=== PATIENT | female | born 1950 | race Caucasian/White ===

== ENCOUNTER 2016-10-26 06:04 | Inpatient (IN) | payer OTHER ==
[2016-10-20 12:13] VITALS: BMI 25.7
[2016-10-26] MEDS ORDERED: CELECOXIB 200 MG CAPSULE PO ONE (06:28)
[2016-10-26] MEDS ORDERED: CEFAZOLIN 1 GM/D5W 50 ML IVPB ONE (06:28)
[2016-10-26] MEDS ORDERED: GABAPENTIN 300 MG CAPSULE (FP) PO ONE (06:28)
[2016-10-26] MEDS ORDERED: TRANEXAMIC ACID 1000 MG/10 ML VIAL IVPUSH ONE (06:28)
[2016-10-26] MEDS ORDERED: GABAPENTIN 300 MG CAPSULE (FP) ONE (06:37)
[2016-10-26] MEDS ORDERED: CELECOXIB 200 MG CAPSULE ONE (06:37)
[2016-10-26] MEDS ORDERED: ceFAZolin SODIUM 1 GM VIAL ONE ×2 (07:03→07:59)
[2016-10-26] MEDS ORDERED: VANCOMYCIN 1,000 MG VIAL (RESTRICTED TO ID ONLY) ONE (07:04)
[2016-10-26] MEDS ORDERED: MIDAZOLAM HCL 2 MG/2 ML SINGLE DOSE VIAL ONE (07:33)
[2016-10-26] MEDS ORDERED: ROPIVACAINE HCL 0.5% 30ML VIAL ONE (07:33)
[2016-10-26] MEDS ORDERED: DEXAMETHASONE SOD PHOSPHATE/PF 10 MG/ML SDV ONE (07:33)
[2016-10-26] MEDS ORDERED: BUPIVACAINE HCL/PF 0.5% (5MG/ML) 10 ML VIAL ONE ×2 (07:35→07:57)
--- NOTE | 2016-10-26 07:45 | HP ---
Satellite [facility] - Chief Complaint Chief Complaint: right knee pain - Past Medical History Allergies/Adverse Reactions: Allergies Allergy/AdvReac Type Severity Reaction Status Date / Time eucalyptus Allergy Intermediate Rash Verified 10/26/16 06:26 latex Allergy Intermediate Hives Verified 10/26/16 06:26 - Current Medications Current Medications: Medication Instructions Recorded Aspirin Coated [Ecotrin -] 81 mg PO DAILY 10/20/16 Atorvastatin Ca [Lipitor] 10 mg PO HS 10/20/16 Calcium Carbonate/Vitamin D3 1 each PO DAILY 10/20/16 [Calcium 600 + Vit D Tablet] Escitalopram Oxalate [Lexapro -] 20 mg PO HS 10/20/16 Fenofibrate Nanocrystallized 145 mg PO HS 10/20/16 [Tricor] Insulin Detemir [Levemir Flextouch] 21 units SQ ACDIN 10/20/16 Liraglutide [Victoza -] 0.6 mg SQ ACDIN 10/20/16 Metformin HCl 1,000 mg PO BID 10/20/16 Multivitamins [Tab-A-Vit -] 1 tab PO DAILY 10/20/16 Omeprazole 20 mg PO DAILY 10/20/16 Satellite Physical Exam - Physical Examination Vital Signs: Vital Signs Period Temp Pulse Resp BP Sys/Hou Pulse Ox Last 24 Hr 99.1 F 76 16 137/69 General Appearance: Well Nourished, Well Developed, Alert & Oriented x3 ENT: Clear Lung: Normal air movement Heart: Regular rate & rhythm Extremities: Other (right knee- + swelling, + ttp, decr rom, nvi xrays show severe tricompartmental djd) Neurological: Intact, Alert, Oriented Satellite Impression/Plan - Impression/Plan Impression: right knee djd Operative Procedure: right tkr Date to be Performed: 10/26/16
[2016-10-26] MEDS ORDERED: PROPOFOL 20 ML ONE ×4 (07:58→09:33)
[2016-10-26] MEDS ORDERED: TRANEXAMIC ACID 1000 MG/10 ML VIAL ONE (07:59)
[2016-10-26] MEDS ORDERED: LIDOCAINE HCL/PF 2% SDV 5ML VIAL ONE (07:59)
[2016-10-26] MEDS ORDERED: ePHEDrine SULFATE 50 MG/1 ML AMPULE ONE (07:59)
[2016-10-26] MEDS ORDERED: PHENYLEPHRINE HCL 10 MG/1 ML SINGLE DOSE VIAL ONE (08:00)
[2016-10-26] MEDS ORDERED: SODIUM CHLORIDE 0.9% P/F 10 ML VIAL IJ ONE (08:00)
[2016-10-26] MEDS ORDERED: SUCCINYLCHOLINE CHLORIDE 200 MG/10 ML VIAL ONE (08:01)
[2016-10-26] MEDS ORDERED: MAG HYDROX/AL HYDROX/SIMETH 30 ML UNIT-DOSE CUP PO PRN (09:55)
[2016-10-26] MEDS ORDERED: MAGNESIUM HYDROX 2400MG/30ML ORAL SUSPENSION 30 ML CUP PO PRN (09:55)
--- NOTE | 2016-10-26 09:58 | OP ---
Operative Note - Note: Operative Date: 10/26/16 (igor) Pre-Operative Diagnosis: right knee djd Operation: right tkr Post-Operative Diagnosis: Same as Pre-op Surgeon: Gerson Pugh Shell Machine Operator: Dileep Reece Anesthesiologist/[employer] OPERATIONS: Neville Headley Anesthesia: Spinal, Local Specimens Removed: bone fragments Estimated Blood Loss (mls): 50 (toruniquet) Operative Report Dictated: Yes
[2016-10-26] MEDS ORDERED: LACTATED RINGERS SOLUTION 1,000 ML IV SCH (10:00)
--- NOTE | 2016-10-26 10:32 | SPEC ---
DATE OF SURGERY: 10/26/2016 OPERATION: Right total knee replacement. PREOPERATIVE DIAGNOSIS: Degenerative joint disease of the right knee. POSTOPERATIVE DIAGNOSIS: Degenerative joint disease of the right knee. SURGEON: Niki Pugh M.D. WEIGH BOSS: Therese Soares ANESTHESIA: Spinal and regional. CLOSURE: Triathlon knee system including No. 2 femur, No. 2 tibia, 9 mm polyethylene, No. 29 patella, No. 1 Vicryl to fascia, 0 and 2-0 subcutaneous, 3-0 Monocryl subcuticular with skin glue. ESTIMATED BLOOD LOSS: Negligible. TOTAL TOURNIQUET TIME: Approximately 75 minutes. COMPLICATIONS: None. CONDITION: To recovery room in stable condition. PROCEDURE: Patient was taken to the operating room. Spinal anesthesia and femoral block were administered by the anesthesiologist. IV Kefzol and TXA were administered prophylactically prior to the case. Well-padded pneumatic tourniquet was placed on the right proximal thigh. The right lower extremity was prepped and draped in the usual sterile fashion. A 12 to 15-cm midline longitudinal incision centered over the patella was incised. Hemostasis was achieved with Bovie cautery and sharp dissection was carried down to the level of the fascia. A medial parapatellar arthrotomy was then made leaving tissue on the patella for later closure. The patella was inverted and the knee was flexed up. Fat pad was excised. Subperiosteal dissection was done on the anterior medial proximal tibia until the knee was able to be brought forward. This was facilitated by taking the ACL and the anterior horn of the lateral meniscus. Using the external tibial alignment, a jig was then clamped to the tibia and malletted into place. A stylus was used to take 2 mm off the lower side. Pins were placed and alignment jig was removed. The alignment was confirmed by using a drop odalys and again pinned with an X pin as well. The saw was used to osteotomize the proximal tibia. The bone and meniscal remnants were all removed. The cutting jib was removed, leaving the pins for now. The proximal femur was opened using a step drill just above the notch. An intramedullary alignment with 6 degrees of valgus was then malleted into place. Using anterior referencing jigs and 7 degrees of valgus and the appropriate 3 degrees of external rotation, the distal femur was cut in the anterior posterior distal chamber with box cuts. The femur was sized and the appropriate jig was used to cut the bone. The soft tissue was confirmed to be balanced in both full extension and flexion by using the gapper. A trial femoral reduction with appropriate femoral-sized component achieved good line to line fit. The remnants of the PCL and posterior menisci were already removed and any osteophytes posteriorly were debrided with an osteotome and a rongeur. The appropriate-sized tibial base plate with a 9 mm insert was placed into the knee and was allowed to find itself." It was then pinned into place and confirmation was confirmed to having appropriate alignment with a drop odalys and a transverse pin in the femur. The knee was taken through a range of motion and found to have good stability throughout. The patella was then calipered for thickness and osteotomized down to the appropriate level. An appropriate lollypop was used to drill lug holes in the patella. Trial reduction with a medializing patella button was performed and the knee went through a full range of motion, full extension, full tracking with no undue tightness, good stability and excellent tracking of the patella. The trial components were removed. The keel was malleted into the tibial base plate. The knee was then post-antibiotic irrigated. Using modern generation techniques and antibiotics cement, the real components were then malleted into position and pressurized with the knee in extension with a trial polyethylene. The knee was thoroughly inspected to remove all excess cement and then post-antibiotic irrigated. The real polyethylene component was then clipped into place. Range of motion, stability, and tracking were described earlier. Medial parapatellar arthrotomy was then closed using No. 1 Vicryl interrupted suture. After closure, the knee was taken through a range of motion and found to have good stability of the repair and excellent tracking of the patella. Subcutaneous was closed with 0 and 2-0 and 3-0 Monocryl subcuticular for the skin, skin glue was placed on the knee. An Aquacel dressing was then applied, as well as a Oakes dressing. Tourniquet was deflated. Total tourniquet time was approximately 75 minutes. There were no complications. At the end of the case another gram of TXA was administered as well. Patient was awakened from anesthesia, and transferred in stable condition. X-rays revealed excellent position of the components. NIKI PUGH M.D. VARUN/[id number]
[2016-10-26] MEDS ORDERED: ACETAMINOPHEN INJECTION 100 ML IVPB ONE (11:21)
[2016-10-26] MEDS ORDERED: ONDANSETRON 4 MG/2 ML VIAL IVPUSH PRN (11:21)
[2016-10-26] MEDS ORDERED: PROMETHAZINE HCL 25 MG/1 ML VIAL IVPUSH PRN (11:21)
[2016-10-26] MEDS ORDERED: oxyCODONE HCL 5 MG TABLET PO PRN ×2 (11:22)
[2016-10-26] MEDS ORDERED: ROPIVACAINE 0.2% 400ML 400 ML ML NR ONE (11:22)
[2016-10-26] MEDS: ACETAMINOPHEN 1000 MG/100 ML VIAL (NON FORMULARY) IVPB ONE ×2 (11:27→12:31)
[2016-10-26] MEDS: MULTIVITAMINS (DAILY MVI) TABLET (FP) PO SCH (12:30)
[2016-10-26] MEDS: PANTOPRAZOLE 40 MG TABLET (FP) PO SCH (12:30)
[2016-10-26] MEDS: INSULIN SLIDING SCALE (NOVOLOG) 1 VIAL SQ SCH ×3 (12:31→22:06)
[2016-10-26] MEDS: CEFAZOLIN 1 GM/D5W 50 ML IVPB SCH (16:25)
[2016-10-26] MEDS ORDERED: metFORMIN HCL 500 MG TABLET (FP) PO SCH (16:30)
[2016-10-26] MEDS: ACETAMINOPHEN 325 MG TABLET (FP) PO SCH (17:54)
[2016-10-26] MEDS ORDERED: PT OWN MED DRAWER 7, Y5N ONE (20:59)
[2016-10-26] MEDS: LIRAGLUTIDE 0.6 MG/0.1 ML PEN.INJCTR SQ SCH (21:00)
[2016-10-26] MEDS: GABAPENTIN 300 MG CAPSULE (FP) PO SCH (22:04)
[2016-10-26] MEDS: ATORVASTATIN CA 10 MG TABLET (FP) PO SCH (22:04)
[2016-10-26] MEDS: oxyCODONE HCL 10 MG SUSTAINED ACTING TABLET PO SCH (22:05)
[2016-10-26] MEDS: ESCITALOPRAM OXALATE 20 MG TABLET (FP) PO SCH (22:05)
[2016-10-26] MEDS: metFORMIN HCL 500 MG TABLET (FP) PO SCH (22:05)
[2016-10-26] MEDS: INSULIN DETEMIR 100 UNITS/ML MDV SQ SCH (22:06)
[2016-10-26] MEDS: SENNOSIDES/DOCUSATE COMBO (SENNA PLUS) TABLET (UD) PO SCH (22:06)
[2016-10-26] MEDS: FENOFIBRIC ACID 135 MG CAP PO SCH (22:07)
[2016-10-27] MEDS: CEFAZOLIN 1 GM/D5W 50 ML IVPB SCH
[2016-10-27] MEDS: ACETAMINOPHEN 325 MG TABLET (FP) PO SCH ×4 (00:30→17:00)
[2016-10-27] MEDS: INSULIN SLIDING SCALE (NOVOLOG) 1 VIAL SQ SCH ×4 (07:01→21:58)
--- NOTE | 2016-10-27 08:15 | PN ---
Progress Note (short form) - Note Progress Note: Ortho Pt seen and examined s/p right tkr pod #1 Selected Entries 10/27/16 06:00 Temperature 97.4 F L Pulse Rate 86 Respiratory 18 Rate Blood Pressure 123/62 dressing c/d/i, calf soft ,nt rom0-70, nvi cbc pending a/p PT dvt ppx pain control d/c home tomorrow if stable
[2016-10-27 08:19] LABS: MCH 26.9 pg (25.7-33.7); MCHC 32.8 g/dl (32.0-36.0); MEAN CELL VOLUME 81.9 fl (80-96); MEAN PLT VOLUME 8.3 fl (7.5-11.1); PLATELET COUNT 392 K/MM3 (134-434); RDW 13.6 % (11.6-15.6); WHITE BLOOD COUNT 11.4 K/mm3 (4.0-10.0)
[2016-10-27 08:33] LABS: CALCIUM 8.3 mg/dl (8.4-10.2); CREATININE 0.5 mg/dl (0.6-1.3)
[2016-10-27] MEDS: ASPIRIN 325 MG TABLET PO SCH (08:50)
[2016-10-27] MEDS: PANTOPRAZOLE 40 MG TABLET (FP) PO SCH (10:06)
[2016-10-27] MEDS: MULTIVITAMINS (DAILY MVI) TABLET (FP) PO SCH (10:06)
[2016-10-27] MEDS: SENNOSIDES/DOCUSATE COMBO (SENNA PLUS) TABLET (UD) PO SCH ×2 (10:07→21:57)
[2016-10-27] MEDS: oxyCODONE HCL 10 MG SUSTAINED ACTING TABLET PO SCH ×2 (10:07→21:55)
[2016-10-27] MEDS: metFORMIN HCL 500 MG TABLET (FP) PO SCH ×2 (10:07→21:56)
[2016-10-27] MEDS: GABAPENTIN 300 MG CAPSULE (FP) PO SCH ×2 (10:07→21:56)
[2016-10-27] MEDS ORDERED: PT OWN MED DRAWER 7, Y5N ONE (21:43)
[2016-10-27] MEDS ORDERED: INSULIN SLIDING SCALE (NOVOLOG) 1 VIAL SQ ONE (21:51)
[2016-10-27] MEDS: ATORVASTATIN CA 10 MG TABLET (FP) PO SCH (21:56)
[2016-10-27] MEDS: LIRAGLUTIDE 0.6 MG/0.1 ML PEN.INJCTR SQ SCH (21:57)
[2016-10-27] MEDS: ESCITALOPRAM OXALATE 20 MG TABLET (FP) PO SCH (21:57)
[2016-10-27] MEDS: INSULIN DETEMIR 100 UNITS/ML MDV SQ SCH (21:58)
[2016-10-27] MEDS: FENOFIBRIC ACID 135 MG CAP PO SCH (21:59)
[2016-10-28] MEDS: ACETAMINOPHEN 325 MG TABLET (FP) PO SCH ×2 (00:13→06:30)
[2016-10-28] MEDS ORDERED: ONDANSETRON 4 MG/2 ML VIAL IVPUSH ONE (06:24)
[2016-10-28] MEDS: INSULIN SLIDING SCALE (NOVOLOG) 1 VIAL SQ SCH ×2 (06:25→06:37)
[2016-10-28 06:33] VITALS: BP 133/65; PULSE 88; TEMP 97.8
[2016-10-28] MEDS: ASPIRIN 325 MG TABLET PO SCH (08:30)
[2016-10-28 09:05] LABS: MCH 26.8 pg (25.7-33.7); MCHC 32.2 g/dl (32.0-36.0); MEAN CELL VOLUME 83.4 fl (80-96); MEAN PLT VOLUME 8.7 fl (7.5-11.1); PLATELET COUNT 407 K/MM3 (134-434); RDW 13.7 % (11.6-15.6); WHITE BLOOD COUNT 15.4 K/mm3 (4.0-10.0)
[2016-10-28] MEDS: GABAPENTIN 300 MG CAPSULE (FP) PO SCH (09:11)
[2016-10-28] MEDS: oxyCODONE HCL 10 MG SUSTAINED ACTING TABLET PO SCH (09:11)
[2016-10-28] MEDS: SENNOSIDES/DOCUSATE COMBO (SENNA PLUS) TABLET (UD) PO SCH (09:12)
[2016-10-28] MEDS: metFORMIN HCL 500 MG TABLET (FP) PO SCH (09:12)
[2016-10-28] MEDS: PANTOPRAZOLE 40 MG TABLET (FP) PO SCH (09:14)
[2016-10-28] MEDS: MULTIVITAMINS (DAILY MVI) TABLET (FP) PO SCH (09:14)
--- NOTE | 2016-10-28 09:52 | PN ---
Progress Note (short form) - Note Progress Note: Ortho Pt seen and examined s/p right tkr pod #2 Selected Entries 10/28/16 06:32 Temperature 97.8 F Pulse Rate 88 Respiratory 18 Rate Blood Pressure 133/65 Laboratory Tests 10/28/16 08:30 WBC 15.4 H D Hgb 11.6 Hct 36.2 Plt Count 407 dressing c/d/i, calf soft ,nt rom 0-50, nvi a/p PT dvt ppx pain control d/c home today f/u in 1 week
--- NOTE | 2016-10-28 09:53 | DS ---
Physical Examination Vital Signs: Vital Signs Temperature 97.8 F 10/28/16 06:32 Pulse Rate 88 10/28/16 06:32 Respiratory Rate 18 10/28/16 07:55 Blood Pressure 133/65 10/28/16 06:32 O2 Sat by Pulse Oximetry (%) 97 10/28/16 07:55 Labs: CBC, BMP 10/28/16 08:30 10/27/16 07:38 Discharge Summary Reason For Visit: RIGHT KNEE OSTEOARTHRITIS Procedures: Principal: s/p right tkr Hospital Course: admitted for elective right tkr, uneventful post-op, stable for d/c Condition: Good - Instructions Diet, Activity, Other Instructions: regular diet keep dressing intact, may shower with aquacel in place weight bearing and range of motion as tolerated ice, elevate ankle pumps Aspirin 325 mg daily x 6 weeks compression device at home when not ambulating f/u in the office in 1 week, call for appt: [phone] Referrals: Gerson Pugh MD [Staff Physician] - Disposition: VNS/HOME HEALTH CARE - Home Medications Comprehensive Discharge Medication List: Ambulatory Orders Atorvastatin Ca [Lipitor] 10 mg PO HS 10/20/16 Calcium Carbonate/Vitamin D3 [Calcium 600 + Vit D Tablet] 1 each PO DAILY Escitalopram Oxalate [Lexapro -] 20 mg PO HS 10/20/16 Fenofibrate Nanocrystallized [Tricor] 145 mg PO HS 10/20/16 Insulin Detemir [Levemir Flextouch] 21 units SQ ACDIN 10/20/16 Liraglutide [Victoza -] 0.6 mg SQ ACDIN 10/20/16 Metformin HCl 1,000 mg PO BID 10/20/16 Multivitamins [Multivit ([facility] Formulary)] 1 tab PO DAILY 10/20/16 Omeprazole 20 mg PO DAILY 10/20/16 Aspirin [ASA -] 325 mg PO DAILY@0800 tablet 10/26/16 Oxycodone HCl/Acetaminophen [Percocet 5-325 mg Tablet -] 1 - 2 tab PO Q6H #50 tab MDD 8 10/26/16
--- NOTE | 2016-10-28 11:42 | PATH ---
Surgical Pathology Report Patient Name: VINICIO CENTENO Med. Rec. #: [id number] /Age/Gender: 1950 (Age: 65) / F Account: [id number] Location: [facility] Taken: 10/26/2016 Received: 10/26/2016 Reported: 10/28/2016 Physicians: Gerson Pugh M.D. Specimen(s) Received RIGHT KNEE BONES Clinical History Right knee osteoarthritis Final Diagnosis BONE AND SOFT TISSUE, RIGHT KNEE, REPLACEMENT: DEGENERATIVE JOINT DISEASE. Electronically Signed Luis Antonio Donaldson M.D. Gross Description Received in formalin, labeled "right knee bones," is a 10.0 x 9.0 x 1.5 cm aggregate of multiple antonio-yellow, irregular portions of bone and soft tissue. There are no areas of eburnation identified. The articular surfaces are antonio-yellow and focally granular. The underlying trabecular bone is yellow and hard. Urinalysis Technician sections are submitted in one cassette, following decalcification. 10/27/2016 [facility]10/27/2016
== END 2016-10-28 13:06 | disposition home health service (06) | DRG 470 ==
LOC: FM/S 06:04
PROVIDERS: ADMIT Orthopaedic Surgery; ATTEND Orthopaedic Surgery
PROC: 0SRC0J9 Replacement of Right Knee Joint with Synthetic Substitute, Cemented, Open Approach (ICD-10-PCS; principal; 2016-10-26 08:00)
DX: M17.11 Unilateral primary osteoarthritis, right knee (principal)
CPT/HCPCS: 36415; 73560-TC-RT; 80048; 85027; 88305-TC; 88311-TC; 94010; 94760; 97116-GP; 97163-GP

== ENCOUNTER 2020-04-28 13:17 | Emergency (ER) | payer OTHER ==
[2020-04-28 13:20] VITALS: TEMP 98.1; BMI 29.9
[2020-04-28] MEDS ORDERED: DIPHTH,PERTUSS(ACELL),TET 0.5 ML DISP.SYRIN IM ONE (14:22)
[2020-04-28] MEDS ORDERED: BACITRACIN 0.9 GM PACKET TP ONE (15:40)
--- NOTE | 2020-04-28 15:40 | PDOC ---
History of Present Illness - General Chief Complaint: Laceration Stated Complaint: FALL Time Seen by Provider: 04/28/20 13:50 - History of Present Illness Initial Comments: Pt is a 69yo F who presents for a laceration on the posterior head. She was seen at urgent care one hour WHAT JOB TITLES MEAN, where the wound was cleaned and she was told to come to ED for additional workup. Two hours WHAT JOB TITLES MEAN, [place] she slipped and hit her head on a rock. There was no LOC and patient was immediately able to return to standing. Patient only reports pain when resting head against surface. Patient does not remember when last received tetanus booster. Denies n/v, headache, weakness, dizziness. PCP: Tenzin PMH: DM, HTN, HLD, GERD PSHx: hernia repair, cholecystectomy Allergies: eucalyptus, latex Past History - Medical History Allergies/Adverse Reactions: Allergies Allergy/AdvReac Type Severity Reaction Status Date / Time eucalyptus Allergy Intermediate Rash Verified 04/28/20 13:18 latex Allergy Intermediate Hives Verified 04/28/20 13:18 Home Medications: Ambulatory Orders Atorvastatin Ca [Lipitor] 10 mg PO HS 10/20/16 Calcium Carbonate/Vitamin D3 [Calcium 600 + Vit D Tablet] 1 each PO DAILY 10/20/16 Escitalopram Oxalate [Lexapro -] 20 mg PO HS 10/20/16 Fenofibrate Nanocrystallized [Tricor] 145 mg PO HS 10/20/16 Insulin Detemir [Levemir Flextouch] 21 units SQ ACDIN 10/20/16 Liraglutide [Victoza -] 0.6 mg SQ ACDIN 10/20/16 Multivitamins [Multivit ([facility] Formulary)] 1 tab PO DAILY 10/20/16 Omeprazole 20 mg PO DAILY 10/20/16 metFORMIN HCL [Metformin HCl] 1,000 mg PO BID 10/20/16 Aspirin [ASA -] 325 mg PO DAILY@0800 tablet 10/26/16 Oxycodone HCl/Acetaminophen [Percocet 5-325 mg Tablet -] 1 - 2 tab PO Q6H #50 tab MDD 8 10/26/16 Anemia: No Asthma: No Cancer: No Cardiac Disorders: No CVA: No COPD: No CHF: No Dementia: No Diabetes: Yes (INSULIN DEPENDANT DX 1997) GI Disorders: Yes (GERD) Disorders: No HTN: Yes (NOT ON MEDICATION AT THIS TIME) Hypercholesterolemia: Yes Liver Disease: No Seizures: No Thyroid Disease: No - Surgical History Abdominal Surgery: Yes (INCISIONAL HERNIA REPAIR , DX LAPAROSCOPY) Cholecystectomy: Yes (04/2000) - Psycho-Social/Smoking History Smoking History: Never smoked Have you smoked in the past 12 months: No - Substance Abuse Hx (Audit-C & DAST Scrn) How often the patient has a drink containing alcohol: Never Score: In Men: 4 or > Positive; In Women: 3 or > Positive: 0 Screen Result (Pos requires Nsg. Audit-10AR): Negative In the last yr the pt used illegal drug/Rx for NonMed reason: No Score: Yes response is considered Positive: 0 Screen Result (Positive result requires Nsg. DAST-10): Negative Review of Systems - Review of Systems Comments:: ROS Constitutional: Denies fevers, chills Respiratory: Denies SOB, Cough, Wheezing Cardiac: Denies Chest Pain, palpitations, Edema GI: Denies abdominal pain, n/v Neurological: Denies headache, tingling, weakness, numbness, loss of consciousness Heme: Denies easy bruising, bleeding MSK: denies muscle or joint pain *Physical Exam - Vital Signs Last Vital Signs Temp Pulse Resp BP Pulse Ox 98.1 F 104 H 20 165/83 100 04/28/20 13:18 04/28/20 13:18 04/28/20 13:18 04/28/20 13:18 04/28/20 13:18 - Physical Exam General: awake and alert, in no acute distress, well developed, well nourished Head: normocephalic, 2 cm laceration Eyes: PERRL, EOMI, anicteric sclera Lung: equal breath sounds b/l, CTA b/l, no crackles, wheezes Heart: irregular rate, no murmurs, rubs, gallops Abdomen: soft, non tender, normoactive bowel sounds, no guarding, rebound, masses Extremities: normal ROM, no edema, no erythema or tenderness, DP/PT pulses 2+ and symmetric Neuro: CN2-12 intact, moves all extremities, normal speech, normal gait, sensation intact Procedures - Laceration/Wound Repair Head Wound Length: to 2.5 cm Wound Explored: clean Wound's Depth, Shape: linear Irrigated w/ Saline: Yes Betadine Prep: No Wound Repaired With: Janell Number of Sutures: 3 ED Treatment Course - ADDITIONAL ORDERS Additional order review: Laboratory Results 04/28/20 14:00 POC Glucometer 107 04/28/20 14:00 POC Glucometer 107 - RADIOLOGY Radiology Studies Ordered: Category Date Time Status HEAD CT WITHOUT CONTRAST [CT] Stat CT Scan 04/28/20 14:22 Ordered Medical Decision Making - Medical Decision Making Ms. Salazar is a 69yo F with hx of DM, HTN, HLD who presents with scalp laceration after a fall. Vital Signs Temp Pulse Resp BP Pulse Ox 98.1 F 75 20 155/82 98 04/28/20 16:00 04/28/20 16:00 04/28/20 16:00 04/28/20 16:00 04/28/20 16:00 DDx: laceration, mechanical fall, syncope Plan: CT head, laceration repair, tetanus booster MDM: - Patient appears well and asymptomatic entirety of ED stay - CT head: No evidence of acute intracranial pathology Re-assessment: - wound well approximated, 3 janell placed - Return precautions given. Disposition: Discharge home Discharge - Discharge Information Problems reviewed: Yes Clinical Impression/Diagnosis: Laceration, Fall, Head injury Condition: Improved Disposition: HOME - Follow up/Referral Referrals: Madhavi Dave MD [Primary Care Provider] - - Patient Discharge Instructions Patient Printed Discharge Instructions: DI for Laceration Repair Additional Instructions: You came into the ER for the laceration on the back of your head. We did a CT scan of your head that did not show any bleeding. We closed the lace ration with 3 janell. Keep the wound clean and dry. You may wash your hair, but do not scrub. Please return to the [facility] Emergency Department for removal of the janell in 7-10 days. Come back to the ER immediately with any signs of infection (fever, pus, warmth, or redness), numbness, severe pain, persistent bleeding. Thank you for coming to the [facility] ER We hope you feel better soon! - Post Discharge Activity
[2020-04-28] MEDS ORDERED: CEPHALEXIN MONOHYDRATE 500 MG CAPSULE (UD) ONE (16:16)
--- NOTE | 2020-04-28 16:21 | PDOC ---
Documentation entered by Catherine Angeles SCRIBE, acting as scribe for Lauro Guevara MD. Lauro Guevara MD: This documentation has been prepared by the Bridgette sawyer Brenda, SCRIBE, under my direction and personally reviewed by me in its entirety. I confirm that the documentation accurately reflects all work, treatment, procedures, and medical decision making performed by me. Attending Attestation - Resident Resident Name: Nikkie Quiroz - ED Attending Attestation I have performed the following: I have examined & evaluated the patient, The case was reviewed & discussed with the resident, I agree w/resident's findings & plan, Exceptions are as noted - HPI HPI: 04/28/20 15:49 The patient is a 69 year old female with a significant PMH IDDM, HL presents to the ED for evaluation after a fall. [place] and [place] her [place]. Denies LOC. Takes a baby ASA. Denies other injuries. Has been in her USOGH, denies fevers, chills, cp, sob, abd pain, urinary sxs, headache, N/V, visual sxs, focal weakness or numbness. Denies drug or etoh use. Allergies: Latex and eucalyptus - Physicial Exam PE: 04/28/20 16:16 GENERAL: Awake, alert, and fully oriented, in no acute distress HEAD: +laceration to posterior scalp, no other trauma or bony ttp EYES: PERRLA, EOMI, sclera anicteric, conjunctiva clear ENT: Auricles normal inspection, hearing grossly normal, nares patent, oropharynx clear without exudates. Moist mucosa NECK: Normal ROM, supple, no lymphadenopathy, JVD, or masses BACK: No midline cervical, thoracic, lumbar ttp LUNGS: Breath sounds equal, clear to auscultation bilaterally. No wheezes, and no crackles HEART: Regular rate and rhythm, normal S1 and S2, no murmurs, rubs or gallops ABDOMEN: Soft, nontender, normoactive bowel sounds. No guarding, no rebound. No masses EXTREMITIES: Normal range of motion, no edema. No clubbing or cyanosis. No cords, erythema, or tenderness NEUROLOGICAL: Normal speech, cranial nerves intact, 5/5 strength in all 4 extremities, normal sensation to light touch in all 4 extremities, normal cerebellar exam, normal gait SKIN: Warm, Dry, normal turgor, no rashes or lesions noted. - Medical Decision Making 04/28/20 16:19 69-year-old female presents emergency department with scalp laceration after mechanical fall and head strike. No LOC Vitals on arrival with mild tachycardia, on repeat check heart rate is 78. Other than laceration, exam is benign. Patient has no spinal tenderness to palpation. She is at her baseline per her son who was here in the emergency department. She has no distracting injuries or intoxication. Her c spine is cleared by Nexus criteria. CT head is negative. Laceration repaired with 3 janell that will be removed in 7 to 10 days. Patient is well-appearing. Return precautions discussed. I discussed the physical exam findings, ancillary test results and final diagnoses with the patient. I answered all of the patient's questions. The pa tient was satisfied with the care received and felt comfortable with the discharge plan and treatment plan. The patient will call their primary care physician within 24 hours to arrange follow-up and will return to the Emergency Department with any new, persistent or worsening symptoms. Discharge - Discharge Information Problems reviewed: Yes Clinical Impression/Diagnosis: Laceration, Fall, Head injury Condition: Improved Disposition: HOME - Follow up/Referral Referrals: Madhavi Dave MD [Primary Care Provider] - - Patient Discharge Instructions Patient Printed Discharge Instructions: DI for Laceration Repair Additional Instructions: You came into the ER for the laceration on the back of your head. We did a CT scan of your head that did not show any bleeding. We closed the laceration with 3 janell. Keep the wound clean and dry. You may wash your hair, but do not scrub. Please return to the [facility] Emergency Department for removal of the janell in 7-10 days. Come back to the ER immediately with any signs of infection (fever, pus, warmth, or redness), numbness, severe pain, persistent bleeding. Thank you for coming to the [facility] ER We hope you feel better soon! - Post Discharge Activity
[2020-04-28 16:32] VITALS: BP 155/82; PULSE 75
== END 2020-04-28 16:00 | disposition home or self-care (01) ==
LOC: JER 13:17
PROC: 3E0234Z Introduction of Serum, Toxoid and Vaccine into Muscle, Percutaneous Approach (ICD-10-PCS; principal; 2020-04-28)
PROC: 0HQ0XZZ Repair Scalp Skin, External Approach (ICD-10-PCS; principal; 2020-04-28)
DX: S01.01XA Laceration without foreign body of scalp, initial encounter (principal); W01.198A Fall on same level from slipping, tripping and stumbling with subsequent striking against other object, initial encounter
CPT/HCPCS: 70450-TC; 82962; 90715; 99284-25